=== PATIENT | male | born 1970 | race Caucasian/White ===

== ENCOUNTER → 2021-09-13 07:58 | Outpatient (CLI) | payer BC, SELFPAY ==
--- NOTE | ~2021-09-13 | MR_ITS ---
EXAMINATION: MR sacrum wo con DATE: 09/13/2021 08:58 INDICATION: Chronic worsening coccydynia TECHNIQUE: Magnetic resonance imaging (MRI) of the sacrum and coccyx was performed without intravenou s contrast. Sequences included sagittal PD-weighted FS FSE, coronal oblique T2-weighted FS FSE, valeriy nal oblique T1-weighted FSE, oblique axial T2-weighted FS FSE and oblique axial T1-weighted FSE. COMPARISON: None FINDINGS: 2 mm retrolisthesis L4 on L5. Lower lumbar facet osteoarthritis, moderate on the left at L5-S1 and mi ld on the right at L5-S1 and bilaterally at L4-L5. Minimal disc desiccation and mild disc height loss at L4-L5. Bone marrow signal is normal throughout with no fracture or pathologic marrow replacing pr ocess. There is increased signal extending across the first intercarpal coccygeal disc space and to l fahad degree at the sacral coccygeal junction along with minimal amount of increased fluid signal pos terior to the coccyx which can be seen with coccydynia. The surrounding soft tissues and vasculature no pathologically enlarged lymphadenopathy in the visualized posterior pelvis are otherwise unremarka ble. IMPRESSION: 1. Increased fluid signal along the first into coccygeal disc space and minimal increased fluid signa l posterior to the coccyx, both findings which can be seen in the setting of coccydynia. No fracture or other osseous abnormality. 2. Mild lower lumbar spondylosis. Reviewed, dictated and finalized at location A. [facility] [employer] IMPRESSION: 1. Increased fluid signal along the first into coccygeal disc space and minimal increased fluid signal posterior to the coccyx, both findings which can be see n in the setting of coccydynia. No fracture or other osseous abnormality. 2. Mild lower lumbar spondylosis.
== END ==
PROVIDERS: PCP Family Medicine
DX: M53.3 Sacrococcygeal disorders, not elsewhere classified (principal); M47.816 Spondylosis without myelopathy or radiculopathy, lumbar region
CPT/HCPCS: 72195